=== PATIENT | male | born 1985 | race African-American/Black ===

== ENCOUNTER 2024-03-09 07:33 | Day surgery (SDC) | payer OTHER ==
[~2024-03-09] VITALS: Ht 182.9 cm; Wt 74.4 kg
[~2024-03-09 07:33] MED LIST: AMLO-258 PO; HYDR-4584 PO; LIDO1ADH72 TD; PREG75 PO; RINGERS SOLUTION,LACTATED 1,000 ML IV ONE
[2024-03-09] MEDS: RINGERS SOLUTION,LACTATED 1,000 ML IV ONE (08:16)
[2024-03-09] MEDS: CHLORHEXIDINE GLUCONATE 2% TOWELETTE [2'S/6'S] TP ONE (08:17)
[2024-03-09] MEDS ORDERED: LIDOCAINE/PF 2% 5 ML VIAL ONE (09:12)
[2024-03-09] MEDS ORDERED: MUPIROCIN CALCIUM 2% 22 GM OINTMENT ONE (09:14)
[2024-03-09] MEDS ORDERED: LIDOCAINE/PF 1% 30 ML VIAL ONE (09:27)
[2024-03-09] MEDS ORDERED: BUPIVACAINE HCL/PF 0.25% 30 ML VIAL ONE (09:28)
[2024-03-09] MEDS ORDERED: HYDROmorphone HCL 2 MG/ML SYRINGE IVP PRN (10:30)
[2024-03-09] MEDS ORDERED: FentaNYL CITRATE PF 100 MCG/2 ML VIAL ONE (11:33)
[2024-03-09] MEDS: FentaNYL CITRATE PF 100 MCG/2 ML VIAL IVP PRN (11:35)
[2024-03-09] MEDS ORDERED: CeFAZolin SODIUM 1 GM VIAL IVP ONE (12:00)
[2024-03-09] MEDS ORDERED: LIDOCAINE/PF 2% 5 ML VIAL IM ONE (12:00)
[2024-03-09] MEDS ORDERED: 0.9% SODIUM CHLORIDE 10 ML VIAL IVP ONE (12:00)
[2024-03-09] MEDS ORDERED: MIDAZOLAM HCL 2 MG/2 ML VIAL IVP ONE (12:00)
[2024-03-09] MEDS ORDERED: ONDANSETRON HCL 4 MG/2 ML VIAL IVP ONE (12:00)
[2024-03-09] MEDS ORDERED: DiphenhydrAMINE HCL 50 MG/ML VIAL IVP ONE (12:00)
[2024-03-09] MEDS ORDERED: PROPOFOL 1% 20 ML VIAL IVP ONE (12:00)
[2024-03-09] MEDS ORDERED: ROCURONIUM BROMIDE 10 MG/ML 5 ML VIAL IVP ONE (12:00)
[2024-03-09] MEDS ORDERED: FentaNYL CITRATE PF 100 MCG/2 ML VIAL IVP ONE (12:00)
[2024-03-09] MEDS ORDERED: EPHEDrine SULFATE 50 MG/ML VIAL IM ONE (12:00)
[2024-03-09] MEDS ORDERED: SUGAMMADEX SODIUM 200 MG/2 ML VIAL IVP ONE (12:00)
[2024-03-09] MEDS: BUPIVACAINE HCL/PF 0.5% 30 ML VIAL ONE (12:36)
[2024-03-09] MEDS ORDERED: OXYGEN THERAPY IH SCH (20:00)
== END 2024-03-09 13:05 ==
LOC: SURGERY 07:33
PROVIDERS: ATTEND Orthopaedic Surgery
DX: S56.321A Laceration of extensor or abductor muscles, fascia and tendons of right thumb at forearm level, initial encounter (principal); I10 Essential (primary) hypertension; F12.90 Cannabis use, unspecified, uncomplicated; Z79.1 Long term (current) use of non-steroidal anti-inflammatories (NSAID); Z79.899 Other long term (current) drug therapy; Z98.890 Other specified postprocedural states; Z80.9 Family history of malignant neoplasm, unspecified; X58.XXXA Exposure to other specified factors, initial encounter; Y93.89 Activity, other specified; Y92.89 Other specified places as the place of occurrence of the external cause; Y99.8 Other external cause status
CPT/HCPCS: J0690; J1200; J2250; J2405; J2704; J3010; J3490; J7120